=== PATIENT | male | born 2000 | race African-American/Black ===

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

== ENCOUNTER 2022-05-04 09:52 | Emergency (ER) | payer MEDICAID ==
[~2022-05-04] VITALS: Ht 193 cm; Wt 82.0 kg
[2022-05-04] MEDS ORDERED: KETOROLAC 15MG/ML VIAL IV ONE (12:00)
[2022-05-04] MEDS ORDERED: SODIUM CHLORIDE 0.9% 1,000 ML IV ONE (12:00)
[2022-05-04 12:02] VITALS: BP 150/95
[2022-05-04 12:15] LABS: BASOPHILS % 0.4 % (0.0-2.0); HEMATOCRIT. 45.3 % (42.0-52.0); HEMOGLOBIN. 15.6 g/dL (14.0-18.0); LYMPHOCYTES % 9.1 % (20.0-50.0); MEAN CORPUSCULAR HEMOGLOBIN 31.9 pg (28.0-32.0); MEAN CORPUSCULAR VOLUME 92.4 fL (80.0-94.0); MEAN PLATELET VOLUME 7.7 fl (7.4-10.4); MONOCYTES % 10.2 % (2.0-8.0); NEUTROPHILS % 80.3 % (40.0-76.0); PLATELET 264 x1000/uL (130-400); RED CELL DISTRIBUTION WIDTH 14.6 % (11.6-14.6)
[2022-05-04 12:21] LABS: CHLORIDE 101 mEq/L (98-107)
[2022-05-04 12:29] LABS: ETHANOL BLOOD < 10 mg/dL
[2022-05-04 14:45] LABS: CLARITY URINE CLEAR (CLEAR); COLOR URINE DARK YELLOW (YELLOW); KETONES URINE 2+ (NEGATIVE); LEUKOCYTE ESTERASE URINE NEGATIVE (NEGATIVE); NITRITE URINE NEGATIVE (NEGATIVE); OCCULT BLOOD URINE NEGATIVE (NEGATIVE); PH URINE 5.5 (4.5-8.0); PROTEIN URINE TRACE (NEGATIVE); SPECIFIC GRAVITY URINE 1.032 (1.005-1.030); UROBILINOGEN URINE 0.2 E.U./dL (0.2-1.0)
[2022-05-04 15:08] LABS: *AMPHETAMINES SCREEN URINE NEGATIVE (NEGATIVE); *BARBITURATES SCREEN URINE NEGATIVE (NEGATIVE); *BENZODIAZEPINES SCREEN URINE NEGATIVE (NEGATIVE); *COCAINE SCREEN URINE NEGATIVE (NEGATIVE); CANNABINOID URINE SCREEN PRESUMTIVE POSITIVE (NEGATIVE); METHADONE URINE SCREEN NEGATIVE (NEGATIVE); OPIATES URINE SCREEN NEGATIVE (NEGATIVE); PHENCYCLIDINE URINE SCREEN NEGATIVE (NEGATIVE)
[2022-05-04] MEDS ORDERED: IBUP-2029 MT (15:28)
== END 2022-05-04 15:46 | disposition home or self-care (01) ==
LOC: ER 10:40
DX: E86.0 Dehydration (principal); R10.30 Lower abdominal pain, unspecified; F12.10 Cannabis abuse, uncomplicated; I10 Essential (primary) hypertension; Z13.9 Encounter for screening, unspecified
CPT/HCPCS: 36415; 74177; 80053; 80305; 80320; 81003; 83690; 85025; 96361; 96374; 99285; J1885; J7030; G0480